=== PATIENT | female | born 1970 | race Caucasian/White ===

== ENCOUNTER 2020-01-14 19:19 | Emergency (ER) | payer OTHER, SELFPAY ==
[~2020-01-14] VITALS: Ht 157.5 cm; Wt 59.0 kg
[2020-01-14 19:22] VITALS: Ht 157.5 cm; Wt 59.0 kg
[2020-01-14 20:48] VITALS: BP 139/73
== END 2020-01-14 20:48 | disposition home or self-care (01) ==
LOC: ED 19:19
DX: B34.9 Viral infection, unspecified (principal); Z20.828 Contact with and (suspected) exposure to other viral communicable diseases
CPT/HCPCS: U0003-CS

== ENCOUNTER → 2020-06-06 | Outpatient (CLI) | payer OTHER ==
[2020-06-06 15:21] LABS: ALBUMIN 3.6 g/dL (3.4-5.0); ALKALINE PHOSPHATASE 97 U/L (46-116); ALT/SGPT 42 U/L (14-59); AST/SGOT 28 U/L (15-37); BILIRUBIN TOTAL 0.2 mg/dL (0.20-1.00); C REACTIVE PROTEIN 0.8 mg/dL (<=0.9); CALCIUM 8.7 mg/dL (8.5-10.1); CARBON DIOXIDE 29.3 mmol/L (21-32); CHLORIDE SERUM 103 mmol/L (98-107); CHOLESTEROL 181 mg/dL (<200); CHOLESTEROL/HDL RATIO 3.5; CREATININE SERUM 0.7 mg/dL (0.6-1.0); GFR1 > 60 mL/min; GLUCOSE SERUM 116 mg/dL (74-106); HDL CHOLESTEROL 51 mg/dL (40-60); POTASSIUM SERUM 3.4 mmol/L (3.5-5.1); SODIUM SERUM 139 mmol/L (136-145); TRIGLYCERIDES 112 mg/dL (<150); URIC ACID 3.4 mg/dL (2.6-6.0)
[2020-06-06 15:28] LABS: RED CELL DISTRIBUTION WIDTH 15.7 % (11.5-14.5); TOTAL PROTEIN, SERUM 8.5 g/dL (6.4-8.2)
[2020-06-06 15:41] LABS: BASOPHIL % 0.7 % (0-2); PLATELET COUNT 335 x10^3mcL (130-400)
[2020-06-06 16:22] LABS: ERYTHROCYTE SED RATE 71 mm/hr (0-20)
== END | disposition home or self-care (01) ==
LOC: LB 12:43
PROVIDERS: ATTEND Family Medicine
DX: Z01.419 Encounter for gynecological examination (general) (routine) without abnormal findings (principal); M25.50 Pain in unspecified joint
CPT/HCPCS: 86431

== ENCOUNTER → 2020-06-10 | Outpatient (CLI) | payer OTHER | LOC: MA 06-07 09:30 | PROVIDERS: ATTEND Family Medicine | DX: C50.911 Malignant neoplasm of unspecified site of right female breast (principal); Z12.31 Encounter for screening mammogram for malignant neoplasm of breast | CPT/HCPCS: 77067 ==